=== PATIENT | male | born 2000 | race Caucasian/White ===

== ENCOUNTER 2023-10-24 01:17 | Emergency (ER) | payer SELFPAY ==
[2023-10-24] MEDS ORDERED: Amoxicillin/Potassium Clav 875 MG TAB ONE (05:54)
[2023-10-24] MEDS ORDERED: Hydrocodone-Acetamin 15 ML UDCUP ONE (05:54)
== END 2023-10-24 06:02 | disposition home or self-care (01) ==
LOC: CSHERS 01:17
DX: S02.85XA Fracture of orbit, unspecified, initial encounter for closed fracture (principal); S02.2XXA Fracture of nasal bones, initial encounter for closed fracture; S01.511A Laceration without foreign body of lip, initial encounter; Y04.8XXA Assault by other bodily force, initial encounter
CPT/HCPCS: 70450; 70486; 76377